=== PATIENT | female | born 1955 | race Two or more races ===

== ENCOUNTER 2017-03-06 07:18 | Emergency (ER) | payer OTHER ==
[~2017-03-06] VITALS: Ht 147.3 cm; Wt 59.0 kg
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
[2017-03-06] MEDS ORDERED: IBUPROFEN400 M1 PO (07:30)
[2017-03-06 08:57] VITALS: BP 146/88
[2017-03-06 09:01] VITALS: BP 166/87
--- NOTE | 2017-03-06 12:50 | Diagnostic Imaging Report ---
Indication: Right hip pain and trauma Technique: continuous helical imaging in the transaxial plane was performed from the iliac crests to the pubic symphysis with attention to the right hip. Coronal 2-D reformatted images were also generated. Study obtained in a [employer] [address] total DLP: 302 mGycm CTD/vol: 0.5, 11.03 mGy Comparison: None Findings: There is no evidence of an acute fracture or significant malalignment identified on this examination. Osteophyte formation noted involving both sacroiliac joints consistent with arthrosis. Soft tissues are unremarkable. Suggestion of a 2.3 cm right ovarian cyst. IMPRESSION: No acute injury identified The CT scanner at [facility] is accredited by the [employer] and the scans are performed using dose optimization techniques as appropriate to a performed exam including Automatic Exposure control.
== END 2017-03-06 08:50 | disposition home or self-care (01) ==
LOC: EDBD 07:18 → EMR 08:25
DX: S70.01XA Contusion of right hip, initial encounter (principal); W19.XXXA Unspecified fall, initial encounter; Y92.811 Bus as the place of occurrence of the external cause
CPT/HCPCS: 99284